=== PATIENT | female | born 1980 | race African-American/Black ===

== ENCOUNTER 2022-02-26 16:44 | Emergency (ER) | payer OTHER ==
[2022-02-26 16:53] VITALS: BP 101/64; PULSE 67; RESP 18; TEMP 98; BMI 29.0
[2022-02-26] MEDS ORDERED: KETOROLAC TROMETHAMINE 30 MG/1 ML VIAL IM ONE (18:19)
[2022-02-26] MEDS ORDERED: LIDOCAINE 5% TOPICAL PATCH TP ONE (18:19)
[2022-02-26] MEDS ORDERED: ACETAMINOPHEN 500 MG TABLET (FP) PO ONE (18:19)
[2022-02-26] MEDS ORDERED: diazePAM 5 MG TABLET PO ONE (18:20)
[2022-02-26] MEDS ORDERED: LIDOCAINE 5% TOPICAL PATCH ONE (18:22)
[2022-02-26] MEDS ORDERED: diazePAM 5 MG TABLET ONE (18:23)
[2022-02-26] MEDS ORDERED: KETOROLAC TROMETHAMINE 30 MG/1 ML VIAL ONE (18:23)
[2022-02-26] MEDS ORDERED: ACETAMINOPHEN 500 MG TABLET (FP) ONE (18:23)
[2022-02-26] MEDS ORDERED: LIDOCAINE PATCH REMOVAL MC SCH (22:00)
== END 2022-02-26 20:27 | disposition home or self-care (01) ==
LOC: JERFT 16:44
PROC: 3E023GC Introduction of Other Therapeutic Substance into Muscle, Percutaneous Approach (ICD-10-PCS; principal; 2022-02-26)
DX: M54.50 Low back pain, unspecified (principal)
CPT/HCPCS: 99284-25